=== PATIENT | female | born 1950 | race American Indian/Alaskan Native ===

== ENCOUNTER 2017-03-04 05:16 | Emergency (ER) | payer MEDICARE, OTHER ==
[2017-03-04 06:07] LABS: Basophils % (Auto) 0.5 % (0.0-1.8); Eosinophils % (Auto) 1.2 % (0.0-4.3); Hematocrit 41.4 % (30.3-42.9); Hemoglobin 13.7 gm/dl (10.1-14.3); Mean Corpuscular HGB Conc 33 % (30-34); Mean Corpuscular Hemoglobin 29 pg (28-32); Mean Corpuscular Volume 89 fl (79-97); Platelet Count 255 K/mm3 (140-440); Red Blood Count 4.65 M/mm3 (3.65-5.03); Red Cell Distribution Width 13.5 % (13.2-15.2); White Blood Count 6.6 K/mm3 (4.5-11.0)
[2017-03-04 06:27] LABS: Alanine Aminotransferase 14 units/L (7-56); Albumin 4.5 g/dL (3.9-5); Albumin/Globulin Ratio 1.3 %; Alkaline Phosphatase 102 units/L (35-129); Anion Gap 16 mmol/L; BUN/Creatinine Ratio 28.33; Bilirubin,Total 0.5 mg/dL (0.1-1.2); Blood Urea Nitrogen 17 mg/dL (7-17); Calcium 9.5 mg/dL (8.4-10.2); Carbon Dioxide 30 mmol/L (22-30); Chloride 96.4 mmol/L (98-107); Glucose 148 mg/dL (65-100); Lipase 24 units/L (13-60); Potassium 3.7 mmol/L (3.6-5.0); Sodium 139 mmol/L (137-145)
[2017-03-04 07:44] LABS: Bilirubin,Urine NEG (Negative); Blood,Urine NEG (Negative); Ketones,Urine NEG (Negative); Leukocyte Esterase,Urine NEG (Negative); Mucus,Urine FEW /HPF; Nitrite,Urine NEG (Negative); Urobilinogen,Urine < 2.0 mg/dL (<2.0)
[2017-03-04 07:45] LABS: WBC,Urine < 1.0 /HPF (0.0-6.0)
[2017-03-04] MEDS ORDERED: MORPHINE IV ONE (10:42)
[2017-03-04] MEDS ORDERED: BENADRYL IV ONE (10:42)
[2017-03-04] MEDS ORDERED: ZOFRAN IV ONE (10:42)
[2017-03-04] MEDS ORDERED: NACL 0.9% 1000 ML 1,000 ML IV ONE (10:42)
--- NOTE | 2017-03-04 10:43 | Emergency Department Report ---
HPI - General Chief Complaint: Abdominal Pain Time Seen by Provider: 03/04/17 10:05 - HPI HPI: This is a 66-year-old Afro-[place] female presents to the emergency department by EMS from home with complaint of upper abdominal and right upper quadrant abdominal pain with radiation towards the back and associated nausea and vomiting that has been going on since midnight last night. She says she is vomiting up green emesis. She has a past medical history of arthritis and hypertension. She tried some baking soda with water for symptoms without much relief. No recent travel or sick contacts at home. She denies any history of gallstones or kidney stones or pancreatitis. Her primary care doctor is Martin Galloway. ED Past Medical Hx - Past Medical History Previous Medical History?: Yes Hx Hypertension: Yes Hx Arthritis: Yes - Surgical History Past Surgical History?: Yes Additional Surgical History: hystrectomy; rt knee scope; rt shoulder rotator cuff repair 2001 right knee replacement - Social History Smoking Status: Never Smoker Substance Use Type: None - Medications Home Medications: Home Medications Medication Instructions Recorded Confirmed Last Taken Type Cyclobenzaprine HCl [Flexeril 5 MG 5 mg PO TID #30 tab 05/24/16 03/04/17 Unknown Rx TAB] Diclofenac Sodium [Diclofenac 100 mg PO QDAY #30 tab.er.24h 05/24/16 03/04/17 Unknown Rx Sodium ER] Gabapentin [Neurontin] 300 mg PO BID #30 cap 05/24/16 03/04/17 Unknown Rx HYDROcodone/APAP 5-325 [Jackson 1 each PO Q6HR PRN #14 tablet 03/04/17 Unknown Rx 5/325] Ondansetron [Zofran Odt] 4 mg PO Q8H PRN #10 tab.rapdis 03/04/17 Unknown Rx ED Review of Systems ROS: Stated complaint: ABD PAIN/N/V Other details as noted in HPI Comment: All other systems reviewed and negative Constitutional: denies: chills, fever Eyes: denies: eye pain, eye discharge, vision change ENT: denies: ear pain, throat pain Respiratory: denies: cough, shortness of breath, wheezing Cardiovascular: denies: chest pain, palpitations Gastrointestinal: abdominal pain, nausea, vomiting Genitourinary: denies: urgency, dysuria, discharge Musculoskeletal: denies: back pain, joint swelling, arthralgia Skin: denies: rash, lesions Neurological: denies: headache, weakness, paresthesias Physical Exam - Physical Exam Vital Signs: Vital Signs 03/04/17 03/04/17 03/04/17 05:25 08:40 08:41 Temperature 97.7 F 97.8 F Pulse Rate 64 59 L Respiratory 18 16 16 Rate Blood Pressure 174/86 Blood Pressure 147/68 [Left] O2 Sat by Pulse 99 98 98 Oximetry Physical Exam: GENERAL: The patient is well-developed well-nourished. HEENT: Normocephalic. Atraumatic. Extraocular motions are intact. Patient has moist mucous membranes. Pupils equal reactive to light bilaterally. NECK: Supple. Trachea is midline. CHEST/LUNGS: Clear to auscultation. There is no respiratory distress noted. HEART/CARDIOVASCULAR: Regular. There is no tachycardia. There is no gallop rub or murmur. ABDOMEN: Patient has tenderness to palpation to the right upper quadrant with a positive Colon's sign. No peritoneal signs. No guarding rebound tenderness. Patient has normal bowel sounds. There is no abdominal distention. SKIN: Skin is warm and dry. NEURO: The patient is awake, alert, and oriented. The patient is cooperative. The patient has no focal neurologic deficits. The patient has normal speech. MUSCULOSKELETAL: There is no tenderness or deformity. There is no limitation range of motion. There is no evidence of acute injury. ED Course Vital Signs 03/04/17 03/04/17 03/04/17 05:25 08:40 08:41 Temperature 97.7 F 97.8 F Pulse Rate 64 59 L Respiratory 18 16 16 Rate Blood Pressure 174/86 Blood Pressure 147/68 [Left] O2 Sat by Pulse 99 98 98 Oximetry ED Medical Decision Making - Lab Data Result diagrams: 03/04/17 05:48 03/04/17 05:48 - Radiology Data Radiology results: report reviewed Right upper quadrant ultrasound shows cholelithiasis without cholecystitis. CT of the abdomen and pelvis with IV contrast does not show any acute process. - Medical Decision Making 66-year-old female presents to the emergency department with upper abdominal pain, nausea and vomiting. Labs are mostly unremarkable. Vital signs stable throughout ED course. Physical exam she does have tenderness to palpation to the upper quadrants of the abdomen and a positive Colon sign. Ultrasound shows cholelithiasis without cholecystitis. CT does not show any further processes. The patient appears safe for discharge home. She'll be given a referral for general surgery to establish care in case she needs elective outpatient cholecystectomy. She'll be given pain meds and antinausea medications. She will return to the ER with any worsening of her symptoms or any acute distress. - Differential Diagnosis cholelithiasis, cholecystitis, pancreatitis, colitis Critical Care Time: No Critical care attestation.: If time is entered above; I have spent that time in minutes in the direct care of this critically ill patient, excluding procedure time. ED Disposition Clinical Impression: Abdominal pain Qualifiers: Abdominal location: right upper quadrant Qualified Code(s): R10.11 - Right upper quadrant pain Cholelithiasis Qualifiers: Cholelithiasis location: gallbladder Cholecystitis presence: without cholecystitis Biliary obstruction: without biliary obstruction Qualified Code(s) : K80.20 - Calculus of gallbladder without cholecystitis without obstruction Disposition: DISCHARGED TO HOME OR SELFCARE Is pt being admited?: No Condition: Stable Instructions: Abdominal Pain (ED), Biliary Colic (ED) Additional Instructions: Please follow-up with a primary care doctor in the next few days. I'll given you a Referral for a general surgeon, Dr. Nelson, to follow-up regarding your gallstones encase you need further or future elective outpatient removal. Return to the emergency department with any worsening of your symptoms or any acute distress. You've been prescribed a medication that is sedating. Therefore this medication cannot be mixed with alcohol, or taken prior to driving, working, or being responsible for children. Prescriptions: HYDROcodone/APAP 5-325 [Jackson 5/325] 1 each PO Q6HR PRN #14 tablet PRN Reason: Pain Ondansetron [Zofran Odt] 4 mg PO Q8H PRN #10 tab.rapdis PRN Reason: Nausea Referrals: PRIMARY CARE, [Primary Care Provider] - 3-5 Days JOSE CONRAD MD [Staff Physician] - 3-5 Days Time of Disposition: 14:07
--- NOTE | 2017-03-04 11:31 | Ultrasound Report ---
Ultrasound of the right upper quadrant. History: Right upper quadrant pain. Findings: The abdominal aorta and liver are normal. There are multiple gallstones. The wall of the gallbladder is normal. There is no pericholecystic fluid. The common bile that is normal in caliber at 3.7 mm. There was a positive Colon's sign at real-time. The right kidney and pancreas are unremarkable. Impression: Cholelithiasis with positive Colon's sign.
--- NOTE | 2017-03-04 12:21 | Admit Criteria Form ---
Admission Criteria Documentation: GALLBLADDER OR BILE DUCT INFLAMMATION OR STONE Clinical Indications for Admission to Inpatient Care ( Place 'X' for any and all applicable criteria): Admission is indicated for patients with ANY ONE of the following(1)(2)(3)(4)(5) : [X ]I. Acute cholecystitis as indicated by ALL of the following: [ X]a) Right upper quadrant pain, mass, or tenderness [ ]b) Systemic signs of inflammation indicated by ANY ONE of the following: [ ]i) Fever [ ]ii) C-reactive protein level greater than 10 mg/L (95 nmol/L) [ ]iii) White blood cell count greater than 10,000/mm3 (10 x109/L) or less than 4000/mm3 (4 x109/L) [ ]II. Inpatient admission required rather than observation care (Also use Gallbladder or Bile Duct Inflammation or Stone: Observation Care as appropriate) because of ANY ONE of the following: [ ]a) Common bile duct obstruction diagnosed [ ]b) Vomiting that is severe or persistent [ ]c) Severe pain requiring acute inpatient management [ ]d) Signs of intestinal obstruction or peritonitis [A] [ ]e) Severe electrolyte abnormalities requiring inpatient care [ ]f) Absent bowel sounds with complete ileus(8) [ ]g) Hemodynamic instability [ ]h) High fever or infection requiring inpatient admission as indicated by ANY ONE of the following (9): [ ]1) Appropriate outpatient or observation care antimicrobial Treatment. unavailable, not effective, or not feasible [ ]2) Temperature greater than 104.9 degrees F (40.5 degrees C) (oral) [ ]3) Temperature greater than 103.1 degrees F (39.5 degrees C) (oral) or less than 96.8 degrees F (36 degrees C) (rectal) that does not respond to all emergency treatment measures [ ]4) Documented bacteremia [ ]i) IV fluid to replace significant ongoing losses (greater than 3 L/m2 per day) [ ]j) Percutaneous or open drainage (eg, abscess, biliary tract) procedures [ ]k) Immediate inpatient surgery [ ]l) Other condition, treatment or monitoring requiring inpatient admission [ ]III. Acute cholangitis as indicated by ALL of the following(9)(10): [ ]a) Systemic signs of inflammation indicated by ANY ONE of the following: [ ]i) Fever [ ]ii) C-reactive protein level greater than 10 mg/L (95 nmol /L) [ ]iii) White blood cell count greater than 10,000/mm3 (10 x109/L) or less than 4000/mm3 (4 x109/L) [ ]b) Evidence of common bile duct disease indicated by ANY ONE of the following: [ ]i) Total serum bilirubin level greater than or equal to 2 mg/dL (34 micromoles/L) [ ]ii) Liver function test (alkaline phosphatase (ALP), r- glutamyltransferase (GGT), aspartate aminotransferase (AST), or alanine aminotransferase (ALT)) greater than 1.5 times the upper limit of normal[B] [ ]iii) Hepatobiliary imaging showing biliary dilatation or evidence of etiology (eg, stricture, stone, previously placed stent) Extended stay beyond goal length of stay may be needed for (1)(2)): [ ]a) Bacteremia or Hemodynamic instability [ ]b) Cholecystectomy [ ]c) Other surgical procedure(24) [ ]d) Percutaneous or endoscopic ultrasound-guided cholecystostomy The original [facility] content created by [facility] has been revised. The portions of the content which have been revised are identified through the use of italic text or in bold, and [facility] has neither reviewed nor approved the modified material. All other unmodified content is copyright [facility]. Please see references footnoted in the original [facility] edition 2016
--- NOTE | 2017-03-04 13:54 | Cat Scan Report ---
CT SCAN OF THE ABDOMEN AND PELVIS WITH CONTRAST: HISTORY: Abdominal pain. TECHNIQUE: Helical CT in 1.25mm intervals following IV contrast. Sagittal and coronal reconstructions. FINDINGS: The liver is normal in size and is without focal defect. No gallstones or biliary dilatation are noted. The spleen and pancreas demonstrate a normal size and attenuation with no evidence of abnormal mass. The kidneys are normal in size and position with no evidence of hydronephrosis or mass. The adrenal glands are normal. There is no intestinal obstruction or ascites. Normal appendix. The abdominal aorta is normal. Hysterectomy changes are noted. There is no evidence of peritoneal air or fluid. There is no evidence of any abnormal masses or fluid collections within the pelvis. No adenopathy is identified. The bladder is normal. IMPRESSION: Unremarkable CT scan of the abdomen and pelvis with contrast. No acute process is appreciated.
[2017-03-04 14:20] VITALS: BP 149/69
== END 2017-03-04 14:19 | disposition home or self-care (01) ==
LOC: ED 05:16
DX: K80.20 Calculus of gallbladder without cholecystitis without obstruction (principal); R10.11 Right upper quadrant pain
CPT/HCPCS: 36415; 74177; 76705; 80053; 81001; 83690; 85025; 96374; 96375; 99284; J1200; J2270; J2405; J7030; Q9967

== ENCOUNTER 2018-04-23 11:52 | Emergency (ER) | payer MEDICARE, OTHER ==
[2018-04-23] MEDS ORDERED: PROVENTIL IH ONE ×2 (12:03→17:56)
[2018-04-23] MEDS ORDERED: DUONEB *Not for PRN Use IH ONE (12:26)
[2018-04-23 12:58] LABS: Hematocrit 40.7 % (30.3-42.9); Hemoglobin 13.9 gm/dl (10.1-14.3); Mean Corpuscular HGB Conc 34 % (30-34); Mean Corpuscular Hemoglobin 31 pg (28-32); Mean Corpuscular Volume 91 fl (79-97); Platelet Count 297 K/mm3 (140-440); Red Blood Count 4.49 M/mm3 (3.65-5.03); Red Cell Distribution Width 13.5 % (13.2-15.2)
--- NOTE | 2018-04-23 13:00 | XRay Report ---
Chest 2 views: History: Cough shortness of breath. Findings: Normal cardiomediastinal silhouette. Trachea is midline. No consolidation, pneumothorax or pleural effusion. Impression: No acute cardiopulmonary findings.
[2018-04-23 13:06] LABS: BUN/Creatinine Ratio 19; Blood Urea Nitrogen 15 mg/dL (7-17); Calcium 9.4 mg/dL (8.4-10.2); Hemolysis Index 7
[2018-04-23 14:02] LABS: Band Neutrophils # (Manual) 0.1 K/mm3; Platelet Estimate Consistent w Auto; RBC Morphology Normal; Total Cells Counted 100
[2018-04-23] MEDS ORDERED: DELTASONE PO ONE (17:56)
[2018-04-23] MEDS ORDERED: ATROVENT IH ONE (17:56)
--- NOTE | 2018-04-23 18:13 | Emergency Department Report ---
HPI - General Chief Complaint: Dyspnea/Respdistress Time Seen by Provider: 04/23/18 16:59 - HPI HPI: Room 7 The patient is a 67-year-old female presenting with a chief complaint of cough and congestion for 3 months. The patient states her symptoms began 3 months ago with sneezing, headache head congestion and postnasal drip. Patient states she's had a cough that is mostly dry but occasionally productive of yellow sputum. The patient states she is seen a health care provider 3 separate times for multiple complaints but she is not improving. The patient states she last saw a provider 2 days ago and was given a Z-Sergio as well as cough medications. The patient states last night after taking cough medication approximately 20 minutes later she developed some chest heaviness lasts approximately 10 minutes and then resolved. The patient states she took the cough medication again this morning but did not have chest heaviness. The patient states she has not seen a oil tanker captain about the above complaints yet. The patient states she came to the emergency department because her coughing has increased in frequency Location: Lungs, see above Duration: 3 months Quality: Cough Severity: Moderate Modifying factors: [see above] Context: [see above] Mode of transportation: [not driving] ED Past Medical Hx - Past Medical History Hx Hypertension: Yes Hx Arthritis: Yes - Surgical History Hx Cholecystectomy: Yes Additional Surgical History: hystrectomy; rt knee scope; rt shoulder rotator cuff repair 2002 right knee replacement - Family History Family history: no significant - Social History Smoking Status: Never Smoker Substance Use Type: None (denies illicit drug use) - Medications Home Medications: Home Medications Medication Instructions Recorded Confirmed Last Taken Type Cyclobenzaprine HCl [Flexeril 5 MG 5 mg PO TID #30 tab 05/24/16 03/04/17 Unknown Rx TAB] Diclofenac Sodium [Diclofenac 100 mg PO QDAY #30 tab.er.24h 05/24/16 03/04/17 Unknown Rx Sodium ER] Gabapentin [Neurontin] 300 mg PO BID #30 cap 05/24/16 03/04/17 Unknown Rx HYDROcodone/APAP 5-325 [Warren 1 each PO Q6HR PRN #14 tablet 03/04/17 Unknown Rx 5/325] Ondansetron [Zofran Odt] 4 mg PO Q8H PRN #10 tab.rapdis 03/04/17 Unknown Rx Ipratropium/Albuter (Nf) 2 puff IH QID #1 inha 04/23/18 Unknown Rx [Combivent (Nf)] predniSONE [Deltasone] 60 mg PO QDAY #12 tab 04/23/18 Unknown Rx ED Review of Systems ROS: Stated complaint: SHORT OF BREATH Other details as noted in HPI Constitutional: no symptoms reported ENT: congestion Respiratory: cough Cardiovascular: chest pain Neurological: headache Physical Exam - Physical Exam Vital Signs: Vital Signs 04/23/18 11:59 Temperature 98.5 F Pulse Rate 84 Respiratory 22 Rate Blood Pressure 174/117 O2 Sat by Pulse 95 Oximetry Physical Exam: GENERAL: The patient is well-developed well-nourished female lying on stretcher not appear to be in acute distress. [] HEENT: Normocephalic. Atraumatic. Extraocular motions are intact. Patient has moist mucous membranes. NECK: Supple. Trachea midline CHEST/LUNGS: Faint wheezing auscultated right greater than left. There is no respiratory distress noted. HEART/CARDIOVASCULAR: Regular. There is no tachycardia. There is no gallop rub or murmur. ABDOMEN: Abdomen is soft, nontender. Patient has normal bowel sounds. There is no abdominal distention. SKIN: There is no rash. There is no diaphoresis. NEURO: The patient is awake, alert, and oriented. The patient is cooperative. The patient has normal speech and gait. MUSCULOSKELETAL:There is no evidence of acute injury. ED Course Vital Signs 04/23/18 11:59 Temperature 98.5 F Pulse Rate 84 Respiratory 22 Rate Blood Pressure 174/117 O2 Sat by Pulse 95 Oximetry - Reevaluation(s) Reevaluation #1: 04/23/18 19:20 Patient states she is feeling improved ED Medical Decision Making - Lab Data Result diagrams: 04/23/18 12:34 04/23/18 12:34 Laboratory Tests 04/23/18 04/23/18 04/23/18 12:34 12:34 Unknown WBC 8.4 RBC 4.49 Hgb 13.9 Hct 40.7 MCV 91 MCH 31 MCHC 34 RDW 13.5 Plt Count 297 Add Manual Diff Complete Total Counted 100 Seg Neutrophils % Associate Media Planner Seg Neuts % (Manual) 35.0 L Band Neutrophils % 1.0 Lymphocytes % (Manual) 48.0 H Reactive Lymphs % (Man) 0 Monocytes % (Manual) 6.0 Eosinophils % (Manual) 8.0 H Basophils % (Manual) 2.0 H Metamyelocytes % 0 Myelocytes % 0 Promyelocytes % 0 Blast Cells % 0 Nucleated RBC % Not Reportable Seg Neutrophils # Man 2.9 Band Neutrophils # 0.1 Lymphocytes # (Manual) 4.0 Abs React Lymphs (Man) 0.0 Monocytes # (Manual) 0.5 Eosinophils # (Manual) 0.7 H Basophils # (Manual) 0.2 H Metamyelocytes # 0.0 Myelocytes # 0.0 Promyelocytes # 0.0 Blast Cells # 0.0 WBC Morphology Not Reportable Hypersegmented Neuts Not Reportable Hyposegmented Neuts Not Reportable Hypogranular Neuts Not Reportable Smudge Cells Not Reportable Toxic Granulation Not Reportable Toxic Vacuolation Not Reportable Dohle Bodies Not Reportable Pelger-Huet Anomaly Not Reportable Mark Rods Not Reportable Platelet Estimate Consistent w auto Clumped Platelets Not Reportable Plt Clumps, EDTA Not Reportable Large Platelets Not Reportable Giant Platelets Not Reportable Platelet Satelliting Not Reportable Plt Morphology Comment Not Reportable RBC Morphology Normal Dimorphic RBCs Not Reportable Polychromasia Not Reportable Hypochromasia Not Reportable Poikilocytosis Not Reportable Anisocytosis Not Reportable Microcytosis Not Reportable Macrocytosis Not Reportable Spherocytes Not Reportable Pappenheimer Bodies Not Reportable Sickle Cells Not Reportable Target Cells Not Reportable Tear Drop Cells Not Reportable Ovalocytes Not Reportable Helmet Cells Not Reportable Martinez-[place]wnside Bodies Not Reportable Clarkia Rings Not Reportable Jerrod Cells Not Reportable Bite Cells Not Reportable Crenated Cell Not Reportable Elliptocytes Not Reportable Acanthocytes (Spur) Not Reportable Rouleaux Not Reportable Hemoglobin C Crystals Not Reportable Schistocytes Not Reportable Malaria parasites Not Reportable Soren Bodies Not Reportable Hem Pathologist Commnt No Sodium 139 Potassium 3.6 Chloride 101.3 Carbon Dioxide 25 Anion Gap 16 BUN 15 Creatinine 0.8 Estimated GFR > 60 BUN/Creatinine Ratio 19 Glucose 85 Calcium 9.4 Troponin T < 0.010 NT-Pro-B Natriuret Pep 64.61 - EKG Data -: EKG Interpreted by Nm EKG shows normal: sinus rhythm Rate: normal - EKG Data When compared to previous EKG there are: previous EKG unavailable Interpretation: other (no ischemic changes seen) - Radiology Data Radiology results: image reviewed (chest x-ray) - Differential Diagnosis reactive airway disease, bronchitis, COPD Critical care attestation.: If time is entered above; I have spent that time in minutes in the direct care of this critically ill patient, excluding procedure time. ED Disposition Clinical Impression: Wheezing, Cough Disposition: DC-01 TO HOME OR SELFCARE Is pt being admited?: No Does the pt Need Aspirin: No Condition: Stable Instructions: Chronic Cough (ED) Additional Instructions: Return to the emergency department immediately should you develop worsening symptoms, fever, inability to tolerate food or liquid or any other concerns. Prescriptions: Ipratropium/Albuter (Nf) [Combivent (Nf)] 2 puff IH QID #1 inha predniSONE [Deltasone] 60 mg PO QDAY #12 tab Referrals: PRIMARY CARE, [Primary Care Provider] - 3-5 Days EFREN KELLER MD [Staff Physician] - 2-3 Days (Dr. Keller is a oil tanker captain. Please follow up with him for further evaluation) Time of Disposition: 19:26
[2018-04-23 20:11] VITALS: BP 118/87
== END 2018-04-23 20:11 | disposition home or self-care (01) ==
LOC: ED 11:52
DX: R05 Cough (principal); R06.2 Wheezing; R51 Headache; R09.81 Nasal congestion; I10 Essential (primary) hypertension; M19.90 Unspecified osteoarthritis, unspecified site; Z90.49 Acquired absence of other specified parts of digestive tract; Z90.710 Acquired absence of both cervix and uterus; Z88.5 Allergy status to narcotic agent; Z88.0 Allergy status to penicillin
CPT/HCPCS: 36415; 71046; 80048; 83880; 84484; 85007; 85025; 93005; 93010; 94644; 99284; J7512

== ENCOUNTER 2018-05-21 08:04 | Outpatient (CLI) | payer MEDICARE, OTHER ==
--- NOTE | 2018-05-25 09:52 | Vascular Lab Report ---
LEFT UPPER EXTREMITY VENOUS DUPLEX: REASON FOR EXAM: Pain and swelling of the left upper extremity COMMENTS ON THE LEFT: All arm veins visualized are freely compressible without evidence of internal echogenicity. The subclavian and internal jugular veins are free of thrombus. Flow is spontaneous and phasic throughout. COMMENTS ON THE RIGHT: A limited study of the jugular and subclavian veins shows no evidence of thrombus. IMPRESSION: No evidence of acute or chronic deep venous thrombosis in the left upper extremity.
== END 2018-05-21 08:05 | disposition home or self-care (01) ==
LOC: VAS 08:04
DX: M79.602 Pain in left arm (principal); M79.89 Other specified soft tissue disorders; I10 Essential (primary) hypertension; M19.90 Unspecified osteoarthritis, unspecified site; Z90.49 Acquired absence of other specified parts of digestive tract; Z90.710 Acquired absence of both cervix and uterus